=== PATIENT | male | born 1980 | race Caucasian/White ===

== ENCOUNTER 2019-06-20 15:30 | Emergency (ER) | payer MEDICAID ==
[~2019-06-20] VITALS: Ht 182.9 cm; Wt 109.1 kg
[2019-06-20] MEDS ORDERED: NO HOME MEDS (16:34)
--- NOTE | 2019-06-20 16:55 | NUR ---
PATIENT ASLEEP AT THIS TIME.
--- NOTE | 2019-06-20 17:12 | NUR ---
PT. IN BED RESTING COMFORTABLY. PT. IS COOPERATIVE AND ANSWERING ALL QUESTIONS. WILL CONTINUE TO MONITOR.
[2019-06-20 17:26] LABS: URINE AMPHETAMINE SCREEN NEGATIVE (Neg); URINE BARBITUATE SCREEN NEGATIVE (Neg); URINE BENZODIAZEPINES SCREEN NEGATIVE (Neg); URINE CANNABINOID SCREEN POSITIVE (Neg); URINE COCAINE SCREEN NEGATIVE (Neg); URINE METHADONE SCREEN NEGATIVE (Neg); URINE OPIATE SCREEN NEGATIVE (Neg); URINE PHENCYCLIDINE SCREEN NEGATIVE (Neg)
[2019-06-20 17:30] LABS: BASOPHILS # (AUTO) 0.1 X10'3 (0-0.2); BASOPHILS % (AUTO) 0.9 % (0-1); EOSINOPHILS # (AUTO) 0.2 X10'3 (0-0.9); EOSINOPHILS % (AUTO) 2.2 % (0-6); HEMATOCRIT 46.4 % (42.0-52.0); HEMOGLOBIN 15.9 g/dl (14.0-17.9); LYMPHOCYTES # (AUTO) 1.9 X10'3 (1.1-4.8); LYMPHOCYTES % (AUTO) 19.1 % (21-51); MEAN CORPUSCULAR HEMOGLOBIN 30.9 PG (27.0-31.0); MEAN CORPUSCULAR HGB CONC 34.2 g/dL (33.0-36.5); MEAN CORPUSCULAR VOLUME 90.4 FL (78-98); MEAN PLATELET VOLUME 7.1 FL (7.4-10.4); MONOCYTES # (AUTO) 0.7 X10'3 (0-0.9); MONOCYTES % (AUTO) 6.6 % (2-12); NEUTROPHILS # (AUTO) 7.1 X10'3 (1.8-7.7); NEUTROPHILS % (AUTO) 71.2 % (42-75); PLATELET COUNT 287 X10'3 (140-440); RED BLOOD COUNT 5.14 X10'6 (4.70-6.10); RED CELL DISTRIBUTION WIDTH 13.4 % (11.5-14.5)
[2019-06-20 17:39] LABS: ALANINE AMINOTRANSFERASE 25 U/L (12-78); ALBUMIN/GLOBULIN RATIO 1.2 (1.1-1.5); ALKALINE PHOSPHATASE 82 IU/L (46-116); ANION GAP 7 (8-16); ASPARTATE AMINO TRANSFERASE 11 U/L (10-37); BILIRUBIN,TOTAL 0.4 MG/DL (0.1-1.0); BLOOD UREA NITROGEN 13 MG/DL (7-18); BUN/CREATININE RATIO 9.8 (5.4-32.0); CALCIUM 8.6 MG/DL (8.5-10.1); CHLORIDE 105 MMOL/L (99-107); CREATININE 1.32 MG/DL (0.60-1.10); GLUCOSE 91 MG/DL (70-104); POTASSIUM 3.5 MMOL/L (3.5-5.1); SODIUM 140 MMOL/L (135-145); TOTAL CARBON DIOXIDE 28.2 MMOL/L (24-32); TOTAL PROTEIN 7.4 G/DL (6.4-8.2); eGFR 60 ML/MIN
[2019-06-20 17:52] LABS: ETHANOL < 0.010 GM/DL (0.0-0.010)
--- NOTE | 2019-06-20 18:50 | NUR ---
PT RESTING ON BACK COMFORTABLY AND COOPERATIVELY, WILL CONTINUE TO MONITOR
--- NOTE | 2019-06-20 19:47 | NUR ---
GAVE REPORT TO CASANDRA AYERS TO TRANSFER PT TO ER OVERFLOW
--- NOTE | 2019-06-20 19:47 | NUR ---
Received report from ANDRIA Klein. Awaiting patient arrival to the unit.
--- NOTE | 2019-06-20 21:40 | NUR ---
Packet sent to [facility]. Confirmed receipt of packet with Lia Mills [facility] office.
[2019-06-21 05:30] VITALS: BP 119/63
--- NOTE | 2019-06-21 08:57 | NUR ---
PT RESTING ON RIGHT SIDE RR EQUAL AND UNLABORED
--- NOTE | 2019-06-21 13:09 | NUR ---
REQUEST WAS MADE TO DR HDEZ FOR PT'S DC PAPERS. WAS INFORMED THAT [facility] HAS YET TO SPEAK WITH DR HDEZ REGARDING PT'S PENDING DC THIS AFTERNOON. [facility] CURRENTLY NOT IN OFFICE TO FOLLOW-UP Addendum: 06/21/19 at 1315 by KACI MEAGAN FROM [facility] SPOKE WITH DR AZUL REGARDING PT'S DC. AWAITING PT DC PAPERWORK.
== END 2019-06-21 13:36 | disposition home or self-care (01) ==
LOC: ER 15:30
DX: R45.851 Suicidal ideations (principal); R94.6 Abnormal results of thyroid function studies
CPT/HCPCS: 36415; 80053; 80305; 80320; 84443; 85025; 99285